=== PATIENT | male | born 1945 | race Caucasian/White ===

== ENCOUNTER 2017-05-17 13:58 | Outpatient (CLI) | payer MEDICARE ==
[2017-05-17 16:18] LABS: Bilirubin Negative (Negative); Blood, Urine Negative (Negative); Clarity CLEAR (Clear); Glucose, Urine (Dipstick) Negative (Negative); Leukocyte Negative (Negative); Nitrite Negative (Negative); Protein, Urine (Dipstick) Negative (Neg-Trace); Specific Gravity, Urine 1.017 (1.002-1.036); Urobilinogen 0.2 mg/dL (0.2-1.0)
[2017-05-17 16:20] LABS: Bacteria/HPF None Seen HPF (None Seen); Hyaline Casts/LPF 0-3 HYALINE CAST LPF (0-3 Hyaline); Pathc Cast-AUWi Flag 0.27 (0-2.49); RBC/HPF 0-3 HPF (0-3); Squamous Epithelial None Seen HPF (0-3); WBC/HPF None Seen HPF (0-3)
[2017-05-17 16:22] LABS: Prothrombin Time 13.2 SEC (12.0-14.7)
[2017-05-17 16:23] LABS: #Basophils 0.1 thou/uL (0.0-0.2); #Eosinphils 0.1 thou/uL (0.0-0.7); #Monocytes 0.5 thou/uL (0.11-0.59); #Neutrophils 5.3 thou/uL (1.40-6.50); %Basophils 0.9 % (0.0-1.0); %Lymphocytes 25.4 % (21.0-51.0); %Monocytes 6.6 % (0.0-10.0); %Neutrophils 66.1 % (42.0-75.0); Hemoglobin 15.9 g/dL (14.0-18.0); Mean Corpuscular HGB CONC 33.3 g/dL (32.0-36.0); Mean Corpuscular Hemoglobin 31.3 pg (27.0-31.0); Mean Platelet Volume 8.6 fL (7.4-10.4); Platelet Count 289 thou/uL (130-400); RBC Distribution Width 11.9 % (11.5-14.5); Red Blood Cell (RBC) Count 5.07 mill/uL (4.70-6.10)
--- NOTE | 2017-05-17 16:30 | RAD ---
CHEST TWO VIEW 05/17/17 HISTORY: Operating room. COMPARISON: None. FINDINGS: Lungs are slightly hyperinflated. Mild blunting left costophrenic sulci, likely sequela of lung hyper inflation. Anterior filling osteophytes thoracic spine. No focal air space consolidation or pneumotho rax. IMPRESSION: No acute intrathoracic abnormality. POS: [facility]
[2017-05-17 16:36] LABS: Anion Gap 15 mmol/L (10-20); BUN (Urea Nitrogen) 11 mg/dL (8.4-25.7); Calc. Creatinine Clearance 0 mL/min (70-130); Calcium 9.9 mg/dL (7.8-10.44); Carbon Dioxide 28 mmol/L (23-31); Chloride 103 mmol/L (98-107); Estimated GFR-MDRD Greater than 90; Glucose 81 mg/dL (80-115); Potassium 4.5 mmol/L (3.5-5.1); Sodium 141 mmol/L (136-145)
--- NOTE | 2017-05-17 19:59 | EKG ---
Test Reason : Blood Pressure : / mmHG Vent. Rate : 078 BPM Atrial Rate : 078 BPM P-R Int : 154 ms QRS Dur : 094 ms QT Int : 370 ms P-R-T Axes : 069 072 053 degrees QTc Int : 421 ms Normal sinus rhythm Normal ECG No previous ECGs available Confirmed by SANDRO CATALAN, DR. Castrejon ([id number]) on 05/17/2017 7:59:08 PM Referred By: FLORINA Confirmed By:DR. Lucía JO MD
== END 2017-05-17 13:59 | disposition home or self-care (01) ==
LOC: LABBT 13:58
PROVIDERS: ATTEND Orthopaedic Surgery
DX: Z01.818 Encounter for other preprocedural examination (principal); M17.11 Unilateral primary osteoarthritis, right knee
CPT/HCPCS: 71046; 80048; 81001; 85025; 85610; 85730; 86850; 86900; 86901; 93005; 93010

== ENCOUNTER 2017-05-22 08:16 | Day surgery (SDC) | payer MEDICARE ==
[2017-05-17 14:40] VITALS: BMI 25.7
[2017-05-22] MEDS ORDERED: Midazolam HCl 2 mg/2 ml Vial ONE (08:41)
[2017-05-22] MEDS ORDERED: Ropivacaine 0.2% HCl/PF 20 ML ONE (08:41)
[2017-05-22] MEDS ORDERED: Fentanyl 100 MCG/2 ML VIAL ONE (08:41)
[2017-05-22] MEDS ORDERED: Fentanyl 100 MCG/2 ML VIAL SLOW IVP PRN ×2 (08:42)
[2017-05-22] MEDS ORDERED: Promethazine HCl 25 MG/ML VIAL IM PRN ×3 (08:42→11:23)
[2017-05-22] MEDS ORDERED: Ondansetron HCl/PF 4 MG/2 ML Vial IVP PRN ×3 (08:42→11:23)
[2017-05-22] MEDS ORDERED: diphenhydrAMINE 25 MG CAP PO PRN (08:42)
[2017-05-22] MEDS ORDERED: HYDROcodone/Acetaminophen 10/325 mg Tablet PO PRN ×3 (08:42→09:24)
[2017-05-22] MEDS ORDERED: traMADol HCl 50 MG TAB PO PRN ×3 (08:42→09:24)
[2017-05-22] MEDS ORDERED: Zolpidem Tartrate 5 MG TAB PO PRN ×2 (08:42→09:24)
[2017-05-22] MEDS ORDERED: Acetaminophen 325 MG TAB PO PRN (08:42)
[2017-05-22] MEDS ORDERED: Tranexamic Acid 1,000 MG in Sodium Chloride 0.9% 100 ML IVPB SCH (08:45)
[2017-05-22] MEDS ORDERED: Tranexamic Acid 1,000 MG/100 ML BAG ONE ×2 (09:07→11:31)
[2017-05-22] MEDS ORDERED: Ropivacaine 0.2% 550 ML 550 ML NERVE BLCK SCH (09:24)
[2017-05-22] MEDS ORDERED: Fentanyl 100 MCG/2 ML VIAL IV PRN (09:24)
[2017-05-22] MEDS ORDERED: Vancomycin HCl 1.5 GM in Sodium Chloride 0.9% 250 ML 300 ML IVPB SCH (09:30)
[2017-05-22] MEDS ORDERED: Promethazine HCl 25 MG/ML VIAL SLOW IVP PRN (11:23)
[2017-05-22] MEDS ORDERED: HYDROmorphone 2 MG/ML VIAL SLOW IVP PRN (11:23)
--- NOTE | 2017-05-22 12:19 | OP ---
DATE OF PROCEDURE: 05/22/2017 PREOPERATIVE DIAGNOSIS: End-stage tricompartmental osteoarthritis, right knee. POSTOPERATIVE DIAGNOSIS: End-stage tricompartmental osteoarthritis, right knee. OPERATIVE PROCEDURE: Cemented cruciate-sparing computer-assisted navigated right total knee arthropl vel. SURGEON: Cory Rogers M.D. LEAD SUPPLY WORKER: Michael Smith PA-C. ANESTHESIA: General via laryngeal mask airway augmented with indwelling femoral adductor canal block with a single shot sciatic block. COMPONENTS USED: [employer] Triathlon size 4 cruciate-sparing cemented femoral component wi th a size 4 cemented primary tibial baseplate, 11 mm polyethylene fixed bearing insert, and A32 douglas lar button. TOURNIQUET TIME: 57 minutes at 300 mmHg. ESTIMATED BLOOD LOSS: Less than 100. DRAINS: None. SPECIMENS: None. COMPLICATIONS: None. COUNTS: Correct. 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 INDICATIONS FOR SURGERY: Kayden is a 71-year-old white male, who has had progressive right knee with standing and walking for the last 5-7 years. He has failed conservative management and elected to pr oceed with total knee arthroplasties in treatment of his pain. PROCEDURE IN DETAIL: After informed consent was obtained in the preoperative holding area. The rama ent was taken to the operative suite where general anesthesia was induced. Once adequate level of ge neral anesthesia was obtained, the patient was positioned and a well-padded tourniquet was placed ese und the right proximal thigh. The right lower extremity was then prepped and draped in the usual latrice rile fashion. Prior to exsanguination, a time out was called and all members of the surgical team ag chevy upon site, surgeon, and patient. The extremity was then exsanguinated and the tourniquet was ra ised. A midline longitudinal incision was then made directly over the patella extending two fingerbr eadths above the superior pole of the patella and two fingerbreadths inferior to the inferior patella r pole of the patella. Deeper subcutaneous layers were dissected sharply and local bleeding was cont rolled with Bovie electrocautery. A quad tendon longitudinal split was then made sharply and a media n parapatellar arthrotomy was carried out both sharp and with Bovie electrocautery, carried down to o ne fingerbreadth medial to the tibial tubercle. The knee was then placed into flexion and the patell a was everted nicely, and a copious fat pad ectomy was performed allowing for greater exposure of the tibia. The computer-assisted distal femoral fiducial was then placed and pinned firmly, and the dis bev femoral cutting guide was pinned firmly into place. The oscillating saw was then used to remove the appropriate amount of bone. The 4-in-1 cutting block was then placed on the distal femur and the oscillating saw was used to remove the appropriate amount of bone off of the anterior, posterior, an d chamfer cuts. After completion of bone cuts, the anterior cruciate ligament was resected sharply a nd the posterior cruciate ligament retractor was placed and the tibia was subluxed for better exposur e. Partial meniscectomies were carried out, and the tibial computer-assisted fiducial was pinned, an d the cutting guide was placed. Oscillating saw was then used to remove the bone with Hohmann retrac tors used to take care and protect the collateral ligaments. After the tibial resection was performe d, a laminar industrial garage servicer was placed in between the freshened bone cuts. The knee placed at 90 degrees a nd further bilateral meniscectomies were carried out, and the curved osteotome and curettage was used to remove any excess bone spurs in the posterior compartment. The trial femoral component, tibial b aseplate were placed with the appropriate polyethylene trial insert with an appropriate polyethylene spacer and patellar button. The knee was taken through full range of motion with flexion and extensi on from 0-90 degrees and patellar broach squarely in the trochlea without any squinting or subluxati on noted. The knee was also stable to varus and valgus stressing at 0, 15, 45, and 90 degrees of fle xion. The drawer was negative. All trial components were then removed and the keel punch was used t o provide the appropriate defect in the tibia with a mallet. The freshened bone cuts were copiously irrigated with pulsatile lavage of about 1-1/2 liters to remove all excess debris. The freshened bon e cuts were then dried and with suction and lap sponge. The knee was placed in flexion and retractor s were placed to provide access to all bone cuts. Tobramycin impregnated methyl methacrylate cement was then placed on the freshened bone cuts and implants which were malleted firmly into place. Curet tage and [place] elevators were used to remove any excess bone cement. The knee was placed into full e xtension and the patellar button was placed under compression, and the cement was allowed to cure. O nce completed, the components were again taken through full range of motion and copious irrigation of the knee was carried out with another liter of normal saline. All components were inspected fully w ith full range of motion and varus and valgus stressing. There was no laxity noted and full extension was observed clinically. Primary closure was accomplished with #2 interrupted Vicryl stitch of the arthrotomy defect. This was oversewn with a #2 running Quill barbed stitch. The subcutaneous layer was then closed with a running 0 barbed Monocryl stitch and skin closure accomplished with a running subcuticular 3-0 Monocryl barbed Quill stitch and augmented with cement on the skin. Tourniquet was lowered. Good spontaneous return of distal pulses was noted clinically and a sterile dressing was ap plied to the incision. The procedure was terminated without any complications. The patient was awak ened in the operative suite and taken to the recovery room in stable condition.
[2017-05-22] MEDS ORDERED: Ropivacaine 0.5% HCl/PF (150 MG/30 ML VIAL) ONE (12:28)
[2017-05-22] MEDS ORDERED: Promethazine HCl 25 MG/ML VIAL ONE (12:46)
[2017-05-22] MEDS ORDERED: Propofol 200 MG/20 ML VIAL ONE (12:53)
[2017-05-22] MEDS ORDERED: ePHEDrine/0.9% NaCl/PF SYRINGE 50 mg/10 ml ONE (12:53)
[2017-05-22] MEDS ORDERED: Ondansetron HCl/PF 4 MG/2 ML Vial ONE (12:53)
[2017-05-22] MEDS ORDERED: Dexamethasone 20 MG/5 ML VIAL ONE (12:53)
--- NOTE | 2017-05-22 13:34 | RAD ---
TWO VIEWS RIGHT KNEE: HISTORY: Right knee arthroplasty. COMPARISON: None. FINDINGS: Postoperative changes compatible with a right knee arthroplasty. Alignment is near anatomic. IMPRESSION: Postoperative changes. POS: [facility]
[2017-05-22] MEDS ORDERED: Ketorolac Tromethamine 30 MG/ML VIAL IM SCH (14:00)
[2017-05-22] MEDS: Ferrous Gluconate 324 MG TAB PO SCH ×2 (14:31→20:31)
[2017-05-22] MEDS: Multivitamin W/ Minerals 1 TAB PO SCH (14:31)
[2017-05-22] MEDS: Ascorbic Acid 500 mg Chewable Tablet PO SCH (14:31)
[2017-05-22] MEDS: Dextrose 5 %-0.45 % NaCl 1,000 ML IV SCH ×2 (14:31→23:59)
[2017-05-22] MEDS: Ketorolac Tromethamine 30 MG/ML VIAL IVP SCH ×3 (14:32→23:56)
[2017-05-22] MEDS: Senokot S 8.6-50 MG TAB PO SCH ×2 (14:32→20:31)
[2017-05-22] MEDS: CEFAZOLIN/Water 2 GM/20 ML SYRINGE SLOW IVP SCH (18:15)
[2017-05-22] MEDS: Aspirin 81 mg Enteric Coated Tablet PO SCH (20:31)
--- NOTE | 2017-05-22 20:41 | PDOC.EVN ---
Event Note - Event Note Event Note: Patient seen and examined. No new complaints. Has h/o HLD - diet controlled. Will monitor. Thank you for this consultation.
[2017-05-23] MEDS: CEFAZOLIN/Water 2 GM/20 ML SYRINGE SLOW IVP SCH (02:35)
[2017-05-23] MEDS: Dextrose 5 %-0.45 % NaCl 1,000 ML IV SCH ×2 (04:36→14:34)
[2017-05-23] MEDS: HYDROcodone/Acetaminophen 10/325 mg Tablet PO PRN ×3 (04:47→15:20)
[2017-05-23 05:51] LABS: Hemoglobin 13.6 g/dL (14.0-18.0); Mean Corpuscular HGB CONC 32.6 g/dL (32.0-36.0); Mean Corpuscular Hemoglobin 30.5 pg (27.0-31.0); Mean Corpuscular Volume 93.7 fl (80.0-94.0); Mean Platelet Volume 8.4 fL (7.4-10.4); Platelet Count 261 thou/uL (130-400); RBC Distribution Width 11.6 % (11.5-14.5); Red Blood Cell (RBC) Count 4.45 mill/uL (4.70-6.10)
[2017-05-23] MEDS: Ketorolac Tromethamine 30 MG/ML VIAL IVP SCH ×2 (06:19→12:52)
[2017-05-23] MEDS: Aspirin 81 mg Enteric Coated Tablet PO SCH (08:31)
[2017-05-23] MEDS: Ascorbic Acid 500 mg Chewable Tablet PO SCH (08:31)
[2017-05-23] MEDS: Senokot S 8.6-50 MG TAB PO SCH (08:31)
[2017-05-23] MEDS: Multivitamin W/ Minerals 1 TAB PO SCH (08:31)
[2017-05-23] MEDS: Ferrous Gluconate 324 MG TAB PO SCH (08:31)
[2017-05-23 15:51] VITALS: BP 149/91; TEMP 97.2
== END 2017-05-23 15:49 | disposition home or self-care (01) ==
LOC: SDC 08:16 → SURG A 08:42 → SDC 05-23 15:49
PROVIDERS: ATTEND Orthopaedic Surgery
PROC: 0SRC0J9 Replacement of Right Knee Joint with Synthetic Substitute, Cemented, Open Approach (ICD-10-PCS; principal; 2017-05-22)
PROC: 8E0YXBZ Computer Assisted Procedure of Lower Extremity (ICD-10-PCS; 2017-05-22)
DX: M17.0 Bilateral primary osteoarthritis of knee (principal); E78.5 Hyperlipidemia, unspecified; E78.00 Pure hypercholesterolemia, unspecified; Z98.41 Cataract extraction status, right eye; Z98.42 Cataract extraction status, left eye; Z98.890 Other specified postprocedural states; Z79.899 Other long term (current) drug therapy
CPT/HCPCS: 20985; 27447; 73560; 85027; 97116 ×2; 97139; 97150; 97530 ×2; A4306; C1713; C1776; G8978; G8979; 36415; J1100; J1885; J2250; J2405; J2550; J2704; J2795; J3010; J3370; J7050

== ENCOUNTER 2018-04-09 10:36 | Outpatient (CLI) | payer MEDICARE ==
[2018-04-09 12:17] LABS: #Basophils 0.1 thou/uL (0.0-0.2); #Eosinphils 0.1 thou/uL (0.0-0.7); #Lymphocytes 2.1 thou/uL (1.20-3.40); #Monocytes 0.4 thou/uL (0.11-0.59); #Neutrophils 3.4 thou/uL (1.40-6.50); %Basophils 1.3 % (0.0-1.0); %Eosinophils 1.3 % (0.0-10.0); %Lymphocytes 34.3 % (21.0-51.0); %Neutrophils 56.1 % (42.0-75.0); Hemoglobin 15.4 g/dL (14.0-18.0); Mean Corpuscular HGB CONC 32.3 g/dL (32.0-36.0); Mean Corpuscular Hemoglobin 29.3 pg (27.0-31.0); Mean Corpuscular Volume 90.7 fL (78.0-98.0); Mean Platelet Volume 8.7 fL (7.4-10.4); Platelet Count 266 thou/uL (130-400); RBC Distribution Width 12.1 % (11.5-14.5); Red Blood Cell (RBC) Count 5.25 mill/uL (4.70-6.10)
[2018-04-09 12:25] LABS: Prothrombin Time 13.4 SEC (12.0-14.7)
[2018-04-09 12:26] LABS: Bilirubin Negative (Negative); Blood, Urine Negative (Negative); Clarity CLEAR (Clear); Glucose, Urine (Dipstick) Negative (Negative); Leukocyte Negative (Negative); Nitrite Negative (Negative); Protein, Urine (Dipstick) Negative (Neg-Trace); Specific Gravity, Urine 1.008 (1.002-1.036); Urobilinogen 0.2 mg/dL (0.2-1.0)
[2018-04-09 12:32] LABS: Bacteria/HPF None Seen HPF (None Seen); Hyaline Casts/LPF 0-3 HYALINE CAST LPF (0-3 Hyaline); RBC/HPF None Seen HPF (0-3); Squamous Epithelial None Seen HPF (0-3); WBC/HPF None Seen HPF (0-3)
[2018-04-09 12:45] LABS: Anion Gap 13 mmol/L (10-20); BUN (Urea Nitrogen) 12 mg/dL (8.4-25.7); Calc. Creatinine Clearance 0 mL/min (70-130); Calcium 9.6 mg/dL (7.8-10.44); Carbon Dioxide 25 mmol/L (23-31); Chloride 106 mmol/L (98-107); Estimated GFR-MDRD Greater than 90; Glucose 87 mg/dL (80-115); Potassium 4.2 mmol/L (3.5-5.1); Sodium 140 mmol/L (136-145)
== END 2018-04-09 10:37 | disposition home or self-care (01) ==
LOC: LABBT 10:36
PROVIDERS: ATTEND Orthopaedic Surgery
DX: Z01.818 Encounter for other preprocedural examination (principal); M17.12 Unilateral primary osteoarthritis, left knee
CPT/HCPCS: 80048; 81001; 85025; 85610; 87081; 93005; 93010

== ENCOUNTER 2018-04-16 10:23 | Day surgery (SDC) | payer MEDICARE ==
[~2018-04-16 10:23] MED LIST: Bupivacaine 0.25% HCL 30 ML VIAL ONE; Ropivacaine 0.5% HCl/PF (150 MG/30 ML VIAL) ONE
[2018-04-16] MEDS ORDERED: Tranexamic Acid 1,000 MG/10 ML VIAL ONE (12:20)
[2018-04-16] MEDS ORDERED: Sodium Chloride 0.9% 100 ML ONE (12:20)
[2018-04-16] MEDS ORDERED: CEFAZOLIN 2 GM/50 ML BAG ONE (12:20)
[2018-04-16] MEDS ORDERED: Fentanyl 100 MCG/2 ML VIAL ONE ×5 (12:33→17:45)
[2018-04-16] MEDS ORDERED: Midazolam HCl 2 mg/2 ml Vial ONE (12:33)
[2018-04-16] MEDS ORDERED: Vancomycin HCl 1.5 GM in Sodium Chloride 0.9% 250 ML 300 ML IVPB SCH (12:45)
[2018-04-16] MEDS ORDERED: Lidocaine 1% (PF) 30 ML VIAL ONE (13:02)
[2018-04-16] MEDS ORDERED: traMADol HCl 50 MG TAB PO PRN ×2 (13:58)
[2018-04-16] MEDS ORDERED: Ondansetron PF 4 MG/2 ML Vial IVP PRN ×2 (13:58→14:14)
[2018-04-16] MEDS ORDERED: Ropivacaine HCl/PF 250 ML in Premix Bag 1 BAG NERVE BLCK SCH (13:58)
[2018-04-16] MEDS ORDERED: Zolpidem Tartrate 5 MG TAB PO PRN ×2 (13:58→14:14)
[2018-04-16] MEDS ORDERED: HYDROcodone/Acetaminophen 10/325 mg Tablet PO PRN ×2 (13:58)
[2018-04-16] MEDS ORDERED: Promethazine HCl 25 MG/ML VIAL IM PRN ×3 (13:58→15:29)
[2018-04-16] MEDS ORDERED: Fentanyl 100 MCG/2 ML VIAL IV PRN (13:59)
[2018-04-16] MEDS ORDERED: Acetaminophen 325 MG TAB PO PRN (14:14)
[2018-04-16] MEDS ORDERED: diphenhydrAMINE 25 MG CAP PO PRN (14:14)
[2018-04-16] MEDS ORDERED: Promethazine HCl 25 MG/ML VIAL SLOW IVP PRN (15:29)
[2018-04-16] MEDS ORDERED: HYDROmorphone 2 MG/ML VIAL SLOW IVP PRN (15:29)
[2018-04-16] MEDS ORDERED: PACU-Morphine 4MG/ML VIAL SLOW IVP PRN (15:29)
[2018-04-16] MEDS ORDERED: Ondansetron HCl/PF 4 MG/2 ML Vial IVP PRN (15:29)
[2018-04-16] MEDS ORDERED: Promethazine HCl 25 MG/ML VIAL ONE (17:06)
--- NOTE | 2018-04-16 17:37 | RAD ---
LEFT KNEE TWO VIEWS: HISTORY: Postop total knee. COMPARISON: None. FINDINGS: Satisfactory postoperative appearance of left total knee arthroplasty and patella resurfacing. Expec sita postoperative gas and edema. IMPRESSION: Satisfactory postoperative appearance. POS: [facility]
[2018-04-16] MEDS ORDERED: Ropivacaine 0.5% HCl/PF (150 MG/30 ML VIAL) ONE (17:44)
[2018-04-16] MEDS ORDERED: Ketorolac Tromethamine 30 MG/ML VIAL IVP SCH (18:00)
--- NOTE | 2018-04-16 18:37 | OP ---
DATE OF PROCEDURE: 04/16/2018 PREOPERATIVE DIAGNOSIS: End-stage tricompartmental osteoarthritis, left knee. POSTOPERATIVE DIAGNOSIS: End-stage tricompartmental osteoarthritis, left knee. PROCEDURE PERFORMED: Cemented cruciate sparing computer-assisted navigated left total knee arthroplasty. DOORKEEPER: Michael Smith PA-C ANESTHESIA: General via LMA augmented with indwelling femoral block and a single shot sciatic block. COMPONENTS USED: [facility] Triathlon size 4 cruciate-sparing cemented primary femoral component with a Triathlon primary size 4 cemented tibial baseplate, size 4 11-mm polyethylene fixed bearing insert, a 32 patella button. TOURNIQUET TIME: 58 minutes at 300 mmHg. ESTIMATED BLOOD LOSS: Less than 100. FINDINGS: End-stage severe degenerative tricompartmental disease, [id number] arthrosis, periarticular osteophyte formation, large serous effusion, hypertrophic synovium, and changes consistent with degenerative genu varum. DRAINS: None. SPECIMENS: None. COMPLICATIONS: None. COUNTS: Correct. INDICATIONS FOR SURGERY: Kayden is a 72-year-old white male, who has had progressive left knee pain and problem with standing and walking for the last 5 to 7 years. He has failed conservative management and elected to proceed with total knee arthroplasty as definitive treatment of his pain. PROCEDURE IN DETAIL: After informed consent was obtained in the preoperative holding area, the patient was taken to the operative suite where general anesthesia was induced. Once adequate level of general anesthesia was obtained, the patient was positioned and a well-padded tourniquet was placed around the left proximal thigh. The left lower extremity was then prepped and draped in the usual sterile fashion. Prior to exsanguination, a time-out was called and all members of the surgical team agreed upon site, surgeon, and patient. The extremity was then exsanguinated and the tourniquet was raised. A midline longitudinal incision was then made directly over the patella extending 2 fingerbreadths above the superior pole of the patella and 2 fingerbreadths inferior to the inferior patellar pole of the patella. Deeper subcutaneous layers were dissected sharply and local bleeding was controlled with Bovie electrocautery. A quad tendon longitudinal split was then made sharply and a median parapatellar arthrotomy was carried out both sharp and with Bovie electrocautery, carried down to 1 fingerbreadth medial to the tibial tubercle. The knee was then placed into flexion and the patella was everted nicely, and a copious fat pad ectomy was performed allowing for greater exposure of the tibia. The computer-assisted distal femoral fiducial was then placed and pinned firmly, and the distal femoral cutting guide was pinned firmly into place. The oscillating saw was then used to remove the appropriate amount of bone. The 4-in-1 cutting block was then placed on the distal femur and the oscillating saw was used to remove the appropriate amount of bone off the anterior, posterior, and chamfer cuts. After completion of bone cuts, the anterior cruciate ligament was resected sharply and the posterior cruciate ligament retractor was placed and the tibia was subluxed for better exposure. Partial meniscectomies were carried out, and the tibial computer-assisted fiducial was pinned, and the cutting guide was placed. Oscillating saw was then used to remove the bone, with Hohmann retractors used to take care and protect the collateral ligaments. After the tibial resection was performed, a laminar water purifier was placed in between the freshened bone cuts. The knee placed at 90 degrees and further bilateral meniscectomies were carried out, and the curved osteotome and curettage were used to remove any excess bone spurs in the posterior compartment. The trial femoral component, tibial baseplate was placed with the appropriate polyethylene trial insert with an appropriate polyethylene spacer and patellar button. The knee was taken through full range of motion with flexion and extension from 0 to 90 degrees and patellar broach squarely in the trochlea without any squinting or subluxation noted. The knee was also stable to varus and valgus stressing at 0, 15, 45, and 90 degrees of flexion. The drawer was negative. All trial components were then removed and the keel punch was used to provide the appropriate defect in the tibia with a mallet. The freshened bone cuts were copiously irrigated with pulsatile lavage of about 1.5 L to remove all excess debris. The freshened bone cuts were then dried with suction and lap sponge. The knee was placed in flexion and retractors were placed to provide access to all bone cuts. Tobramycin-impregnated methyl methacrylate cement was then placed on the freshened bone cuts and implants which were malleted firmly into place. Curettage and [place] elevators were used to remove any excess bone cement. The knee was placed into full extension and the patellar button was placed under compression, and the cement was allowed to cure. Once completed, the components were again taken through full range of motion and copious irrigation of the knee was carried out with another liter of normal saline. All components were inspected fully with full range of motion and varus and valgus stressing. There was no laxity noted and full extension was observed clinically. Primary closure was accomplished with #2 interrupted Vicryl stitch of the arthrotomy defect. This was oversewn with a #2 running Quill barbed stitch. The gravitational platelet system was then injected into the arthrotomy prior to closure. The subcutaneous layer was then closed with a running 0 barbed Monocryl stitch and skin closure accomplished with a running subcuticular 3-0 Monocryl barbed Quill stitch and augmented with cement on the skin. Tourniquet was lowered. Good spontaneous return of distal pulses was noted clinically and a sterile dressing was applied to the incision. The procedure was terminated without any complications. The patient was awakened in the operative suite and the left knee was removed, and the patient was taken to the recovery room in stable condition. Job ID: [id number]
[2018-04-16] MEDS: Aspirin 81 mg Enteric Coated Tablet PO SCH (21:42)
[2018-04-16] MEDS: Ferrous Gluconate 324 MG TAB PO SCH (21:43)
[2018-04-16] MEDS: Senokot S 8.6-50 MG TAB PO SCH (21:43)
[2018-04-16] MEDS: CEFAZOLIN 2 GM/50 ML BAG IVPB SCH (21:44)
[2018-04-16] MEDS: Sodium Chloride 0.9% 1,000 ML IV SCH (21:44)
[2018-04-16] MEDS: Ketorolac Tromethamine 30 MG/ML VIAL IVP SCH (21:44)
[2018-04-16 23:40] VITALS: BMI 25.5
[2018-04-17] MEDS: Sodium Chloride 0.9% 1,000 ML IV SCH ×2 (01:16→11:28)
[2018-04-17] MEDS: Ketorolac Tromethamine 30 MG/ML VIAL IVP SCH ×3 (05:11→15:24)
[2018-04-17] MEDS: CEFAZOLIN 2 GM/50 ML BAG IVPB SCH (05:11)
[2018-04-17 05:49] LABS: Hemoglobin 12.4 g/dL (14.0-18.0); Mean Corpuscular HGB CONC 33.9 g/dL (32.0-36.0); Mean Corpuscular Hemoglobin 30.5 pg (27.0-31.0); Mean Platelet Volume 8.5 fL (7.4-10.4); Platelet Count 225 thou/uL (130-400); RBC Distribution Width 11.9 % (11.5-14.5); Red Blood Cell (RBC) Count 4.06 mill/uL (4.70-6.10); White Blood Cell (WBC) Count 14.1 thou/uL (4.8-10.8)
[2018-04-17] MEDS: Aspirin 81 mg Enteric Coated Tablet PO SCH (08:39)
[2018-04-17] MEDS: Ferrous Gluconate 324 MG TAB PO SCH (08:40)
[2018-04-17] MEDS: Senokot S 8.6-50 MG TAB PO SCH (08:41)
[2018-04-17] MEDS ORDERED: Multivitamin W/ Minerals 1 TAB PO SCH (09:00)
--- NOTE | 2018-04-17 09:43 | PDOC.PN ---
- Subjective Encounter Start Date: 04/17/18 Encounter Start Time: 08:10 -: old records requested/rev Patient seen and examined. No new complaints. No overnight events consulted for medical management pain is controlled - Objective Resuscitation Status - Order Detail: 04/17/18 07:37 Resuscitation Status Routine Resuscitation Status: FULL: Full Resuscitation MAR Reviewed: Yes Vital Signs & Weight: Vital Signs (12 hours) Temp Pulse Resp BP Pulse Ox 04/17/18 08:31 98.1 F 87 16 116/71 94 L 04/17/18 03:57 98.4 F 79 19 99/63 94 L 04/17/18 00:27 97.5 F L 67 22 H 133/84 96 Weight Weight 183 lb I&O: 04/16/18 04/17/18 04/18/18 06:59 06:59 06:59 Intake Total 920 Output Total 875 Balance 45 Result Diagrams: 04/17/18 05:19 Additional Labs: old record reviewed Radiology Reviewed by me: Yes (knee xray reviewed) Phys Exam - Physical Examination Constitutional: NAD HEENT: PERRLA, moist MMs, sclera anicteric Neck: no JVD, supple Respiratory: no wheezing, no rales, no rhonchi Cardiovascular: RRR, no significant murmur, no rub Gastrointestinal: soft, non-tender, no distention, positive bowel sounds Musculoskeletal: no edema, pulses present left knee with dressing, nerve block in place Neurological: non-focal, normal sensation, moves all 4 limbs Psychiatric: normal affect, A&O x 3 Skin: no rash, normal turgor Dx/Plan (1) Status post left knee replacement Code(s): Z96.652 - PRESENCE OF LEFT ARTIFICIAL KNEE JOINT Status: Acute (2) BPH (benign prostatic hyperplasia) Code(s): N40.0 - BENIGN PROSTATIC HYPERPLASIA WITHOUT LOWER URINRY TRACT SYMP Status: Chronic Comment: on herbal meds (3) Osteoarthritis Code(s): M19.90 - UNSPECIFIED OSTEOARTHRITIS, UNSPECIFIED SITE Status: Chronic - Plan cont current plan of care, PT/OT * continue aspirin for DVT prophylaxis * continue PT as per [facility] [place] protocol treatment * nerve block as per anesthesia * discharge per primary team * medically stable * medication reviewed as below * symptomatic treatment * pain controlled * code status addressed and he is full code. Review of Systems - Review of Systems ENT: negative: Ear Pain, Ear Discharge, Nose Pain, Nose Discharge, Nose Congestion, Mouth Pain, Mouth Swelling, Throat Pain, Throat Swelling, Other Respiratory: negative: Cough, Dry, Shortness of Breath, Hemoptysis, SOB with Excertion, Pleuritic Pain, Sputum, Wheezing Cardiovascular: negative: chest pain, palpitations, orthopnea, paroxysmal nocturnal dyspnea, edema, light headedness, other Gastrointestinal: negative: Nausea, Vomiting, Abdominal Pain, Diarrhea, Constipation, Melena, Hematochezia, Other Genitourinary: negative: Dysuria, Frequency, Incontinence, Hematuria, Retention , Other Musculoskeletal: negative: Neck Pain, Shoulder Pain, Arm Pain, Back Pain, Hand Pain, Leg Pain, Foot Pain, Other Skin: negative: Rash, Lesions, Brian, Bruising, Other - Medications/Allergies Allergies/Adverse Reactions: Allergies Allergy/AdvReac Type Severity Reaction Status Date / Time No Known Allergies Allergy Verified 04/16/18 23:03 Medications: Current Medications Acetaminophen (Tylenol) 650 mg PO Q4H PRN PRN Reason: Headache/Fever or Pain Hydrocodone Bitart/Acetaminophen (Counce 10/325) 1 tab PO Q4H PRN PRN Reason: Pain (1-3) Hydrocodone Bitart/Acetaminophen (Counce 10/325) 2 tab PO Q4H PRN PRN Reason: PAIN (4-6) Aspirin (Ecotrin) 81 mg PO BID [facility] Last Admin: 04/17/18 08:39 Dose: 81 mg Diphenhydramine HCl (Benadryl) 25 mg PO Q6H PRN PRN Reason: Itching Fentanyl (Sublimaze) 50 mcg IV Q1H PRN PRN Reason: .BREAKTHROUGH PAIN Ferrous Gluconate (Fergon) 324 mg PO BID [facility] Last Admin: 04/17/18 08:40 Dose: 324 mg Ropivacaine 250 ml/ Device 250 mls @ 10 mls/hr NERVE BLCK INF [facility] Sodium Chloride (Normal Saline 0.9%) 1,000 mls @ 100 mls/hr IV .Q10H [facility] Last Admin: 04/17/18 01:16 Dose: Not Given Iron/Minerals/Multivitamins (Theragran M) 1 tab PO DAILY [facility] Last Admin: 04/17/18 08:40 Dose: 1 tab Ketorolac Tromethamine (Toradol) 15 mg IVP 0400,1000,1600,2200 [facility] Stop: 04/18/18 16:01 Last Admin: 04/17/18 05:11 Dose: 15 mg Ondansetron HCl (Zofran) 4 mg IVP Q6H PRN PRN Reason: Nausea/Vomiting Promethazine HCl (Phenergan) 12.5 mg IM Q4H PRN PRN Reason: Nausea/Vomiting Senna/Docusate Sodium (Senokot S) 2 tab PO BID [facility] Last Admin: 04/17/18 08:41 Dose: 2 tab Sodium Chloride (Flush - Normal Saline) 10 ml IVF PRN PRN PRN Reason: Saline Flush Tramadol HCl (Ultram) 50 mg PO Q6H PRN PRN Reason: Mild Pain (1-3) Tramadol HCl (Ultram) 100 mg PO Q6H PRN PRN Reason: Moderate Pain 4-6 Zolpidem Tartrate (Ambien) 5 mg PO HSPRN PRN PRN Reason: Insomnia
--- NOTE | 2018-04-17 10:51 | DIS ---
DATE OF ADMISSION: 04/16/2018 DATE OF DISCHARGE: 04/17/2018 DISCHARGE DISPOSITION: Home. PRIMARY DISCHARGE DIAGNOSIS: Status post left total knee replacement. SECONDARY DISCHARGE DIAGNOSES: Osteoarthritis, benign enlargement of prostate. PRIMARY PROCEDURE/OPERATION: Left total knee replacement by Dr. Rogers. RADIOLOGICAL INVESTIGATION: Knee x-ray. SIGNIFICANT LABORATORY DATA: WBC 14.1, hemoglobin 12.4, platelets 225. DISCHARGE MEDICATION: Pain medication will be given by primary team and aspirin 81 mg p.o. b.i.d. for DVT prophylaxis. CONTRAINDICATION: None. CODE STATUS: Full code. INPATIENT CONSULT: Dr. Rogers was primary, Eugenie Team was consulted for medical comanagement. TEST RESULTS PENDING ON DISCHARGE: None. ALLERGIES: NO KNOWN DRUG ALLERGIES. DISCHARGE PLAN: Posthospital, the patient will follow up with Dr. Cory Rogers on 05/15/2018 at 10:45 am. HOSPITAL COURSE: A 72-year-old male with above-mentioned medical problem, who was electively admitted by Dr. Rogers for left total knee replacement which was done on 04/16/2018 without any complications. Postoperatively, the patient was doing very well. He had no block while in the hospital. He was given aspirin for DVT prophylaxis. He was not taking any medication at home. His pain was controlled with pain medication. He did very well with [facility] protocol treatment and the patient is planned for discharge later on today. Eugenie Team was consulted for medical comanagement. The patient remained medically stable and he is medically stable for discharge. Job ID: [id number]
[2018-04-17] MEDS ORDERED: Ropivacaine 0.2% 550 ML 550 ML NERVE BLCK SCH (15:44)
[2018-04-17 16:21] VITALS: BP 117/74; TEMP 98.4
== END 2018-04-17 18:06 | disposition home or self-care (01) ==
LOC: SDC 10:23 → SJJU 18:15 → SDC 04-17 18:06
PROVIDERS: ATTEND Orthopaedic Surgery
PROC: 0SRD069 Replacement of Left Knee Joint with Oxidized Zirconium on Polyethylene Synthetic Substitute, Cemented, Open Approach (ICD-10-PCS; principal; 2018-04-16)
DX: M17.12 Unilateral primary osteoarthritis, left knee (principal); N40.0 Benign prostatic hyperplasia without lower urinary tract symptoms
CPT/HCPCS: 36415; 85027; 96374; A4306; C1713; C1776; G8978-GP-CK; G8979-GP-CI; J1885; J2001; J2250; J2550; J2795; J3010; J3370; J7050; S0020

== ENCOUNTER 2021-06-23 07:58 | Outpatient (CLI) | payer MEDICARE ==
[2021-06-23 08:36] LABS: Estimated GFR-MDRD - POC Greater than 90
[2021-06-23] MEDS ORDERED: Magnevist 469MG/ML 20 ML VIAL ONE (11:13)
== END 2021-06-23 07:59 | disposition home or self-care (01) ==
LOC: TBSIIMAG 07:58
PROVIDERS: ATTEND Urology
DX: R97.20 Elevated prostate specific antigen [PSA] (principal); Z98.890 Other specified postprocedural states
CPT/HCPCS: 72197; 82565

== ENCOUNTER 2021-12-26 11:22 | Observation (INO) | payer MEDICARE ==
[2021-12-21 11:48] LABS: Bilirubin Neg (Negative); Blood, Urine 25 (Negative); Clarity Clear (Clear); Glucose, Urine (Dipstick) Normal (Negative); Ketone, Urine Negative (Negative); Leukocyte Negative (Negative); Nitrite Negative (Negative); Protein, Urine (Dipstick) Negative (Neg-Trace); Urobilinogen Normal mg/dL (Less than 2)
[2021-12-21 11:51] LABS: Hemoglobin 14.5 g/dL (13.5-17.5); Mean Corpuscular HGB CONC 34.5 g/dL (32.0-36.0); Mean Corpuscular Hemoglobin 30.2 pg (27.0-33.0); Mean Corpuscular Volume 87.5 fl (81.2-95.1); Platelet Count 274 10x3/uL (150-450); RBC Distribution Width 13.6 % (11.5-14.5); White Blood Cell (WBC) Count 6.1 10x3/uL (3.5-10.5)
[2021-12-21 12:04] LABS: Bacteria/HPF None Seen HPF (None Seen); RBC/HPF 0-3 HPF (0-3); Squamous Epithelial 0-3 HPF (0-3); WBC/HPF 0-3 HPF (0-3)
[2021-12-21 12:10] LABS: PTT 26.5 sec (22.0-33.0); Prothrombin Time 10.9 sec (9.5-12.1)
[2021-12-21 12:34] LABS: Anion Gap 12 mmol/L (10-20); BUN (Urea Nitrogen) 8 mg/dL (8.4-25.7); Calc. Creatinine Clearance 0 mL/min (70-130); Calcium 9.3 mg/dL (7.8-10.44); Carbon Dioxide 27 mmol/L (23-31); Chloride 106 mmol/L (98-107); Estimated GFR 92; Glucose 86 mg/dL (83-110); Potassium 4.6 mmol/L (3.5-5.1); Sodium 140 mmol/L (136-145)
[2021-12-26] MEDS ORDERED: fentaNYL Citrate/PF 100 MCG/2 ML SYRINGE ONE (14:37)
[2021-12-26] MEDS ORDERED: Levofloxacin 500 mg/D5W 100 ml Premix Bag ONE (14:40)
[2021-12-26] MEDS ORDERED: Ondansetron PF 4 MG/2 ML Vial ONE (14:51)
[2021-12-26] MEDS ORDERED: Phenylephrine 10 MG/ML VIAL ONE (14:51)
[2021-12-26] MEDS ORDERED: Lidocaine 1% MPF 2 ML VIAL ONE (14:51)
[2021-12-26] MEDS ORDERED: Glycopyrrolate 0.2 MG/ML 5 ML SYRINGE ONE (14:51)
[2021-12-26] MEDS ORDERED: Dexamethasone 20 MG/5 ML VIAL ONE (14:51)
[2021-12-26] MEDS ORDERED: Labetalol HCl 100 MG/20 ML VIAL ONE (14:51)
[2021-12-26] MEDS ORDERED: Neostigmine Methylsulfate 3 MG/3 ML SYRINGE ONE (14:51)
[2021-12-26] MEDS ORDERED: PROPOFOL 200 MG/20 ML VIAL ONE (14:51)
[2021-12-26] MEDS ORDERED: Rocuronium Bromide 10 MG/ML (10ML VIAL) ONE (14:51)
[2021-12-26] MEDS ORDERED: Oxybutynin 5 MG TAB PO PRN (17:13)
[2021-12-26] MEDS ORDERED: Morphine 2 MG/ML VIAL SLOW IVP PRN (17:13)
[2021-12-26] MEDS ORDERED: HYDROcodone/Acetaminophen 5/325 mg Tablet PO PRN ×2 (17:13)
[2021-12-26] MEDS ORDERED: hydrALAZINE 20 MG/ML VIAL SLOW IVP PRN (17:13)
[2021-12-26] MEDS ORDERED: Phenazopyridine HCl 95 MG TAB PO PRN (17:13)
[2021-12-26] MEDS ORDERED: Mag-Al 1200 mg/1200 mg/30 ML UDCUP PO PRN (17:13)
[2021-12-26] MEDS ORDERED: Morphine 4 MG/ML VIAL SLOW IVP PRN (17:13)
[2021-12-26] MEDS ORDERED: Acetaminophen 500 MG TAB PO PRN (17:13)
[2021-12-26] MEDS ORDERED: diphenhydrAMINE 25 MG CAP PO PRN (17:13)
[2021-12-26] MEDS ORDERED: Promethazine HCl 25 MG/ML VIAL IVPB PRN (17:19)
[2021-12-26] MEDS ORDERED: Ondansetron HCl/PF 4 MG/2 ML Vial IVP PRN (17:19)
[2021-12-26] MEDS ORDERED: Promethazine HCl 25 MG/ML VIAL IM PRN (17:19)
[2021-12-26] MEDS ORDERED: PACU-Morphine 4MG/ML VIAL SLOW IVP PRN (17:19)
[2021-12-26] MEDS ORDERED: Morphine Sulfate 2 MG/ML SYRINGE SLOW IVP PRN (17:19)
[2021-12-26] MEDS ORDERED: HYDROmorphone 2 MG/ML VIAL SLOW IVP PRN (17:19)
[2021-12-26 17:43] LABS: #Basophils 0.1 thou/uL (0.0-0.2); #Eosinphils 0.1 thou/uL (0.0-0.7); #Lymphocytes 1.8 thou/uL (1.20-3.40); #Monocytes 0.3 thou/uL (0.11-0.59); #Neutrophils 7.7 thou/uL (1.40-6.50); %Basophils 0.5 % (0.0-1.0); %Eosinophils 0.8 % (0.0-10.0); %Monocytes 2.7 % (0.0-10.0); Mean Corpuscular HGB CONC 33.2 g/dL (32.0-36.0); Mean Corpuscular Hemoglobin 31.1 pg (27.0-31.0); Mean Corpuscular Volume 93.8 fL (78.0-98.0); Mean Platelet Volume 8.5 fL (7.4-10.4); Platelet Count 224 thou/uL (130-400); RBC Distribution Width 12.6 % (11.5-14.5); Red Blood Cell (RBC) Count 4.52 mill/uL (4.70-6.10); White Blood Cell (WBC) Count 9.8 thou/uL (4.8-10.8)
[2021-12-26] MEDS ORDERED: Fentanyl 100 MCG/2 ML VIAL ONE (17:53)
[2021-12-26 18:01] LABS: Anion Gap 16 mmol/L (10-20); BUN (Urea Nitrogen) 10 mg/dL (8.4-25.7); Calc. Creatinine Clearance 98 mL/min (70-130); Calcium 8.4 mg/dL (7.8-10.44); Carbon Dioxide 21 mmol/L (23-31); Chloride 108 mmol/L (98-107); Estimated GFR 97; Glucose 95 mg/dL (83-110); Potassium 4.1 mmol/L (3.5-5.1); Sodium 141 mmol/L (136-145)
[2021-12-26] MEDS: Famotidine/PF 20 mg/2ml Vial SLOW IVP SCH (20:24)
[2021-12-26] MEDS: Sodium Chloride 0.9% 1,000 ML IV SCH (20:26)
[2021-12-26] MEDS ORDERED: Dutasteride 0.5 MG CAP PO SCH (21:00)
[2021-12-26] MEDS ORDERED: Atorvastatin Calcium 40 MG TAB PO SCH (21:00)
[2021-12-26] MEDS ORDERED: Tamsulosin HCl 0.4 MG CAP PO SCH (21:00)
[2021-12-26] MEDS: Docusate 100 MG CAP PO SCH (21:33)
[2021-12-27] MEDS: Sodium Chloride 0.9% 1,000 ML IV SCH (03:00)
[2021-12-27 03:26] VITALS: BMI 23.9
[2021-12-27 06:11] LABS: #Lymphocytes 1.1 thou/uL (1.20-3.40); #Monocytes 0.2 thou/uL (0.11-0.59); #Neutrophils 12.8 thou/uL (1.40-6.50); %Basophils 0.1 % (0.0-1.0); %Lymphocytes 7.5 % (21.0-51.0); %Monocytes 1.5 % (0.0-10.0); %Neutrophils 90.9 % (42.0-75.0); Hemoglobin 14.9 g/dL (14.0-18.0); Mean Corpuscular HGB CONC 32.9 g/dL (32.0-36.0); Mean Corpuscular Hemoglobin 30.7 pg (27.0-31.0); Mean Corpuscular Volume 93.1 fL (78.0-98.0); Mean Platelet Volume 9.1 fL (7.4-10.4); Platelet Count 239 thou/uL (130-400); RBC Distribution Width 12.4 % (11.5-14.5); Red Blood Cell (RBC) Count 4.86 mill/uL (4.70-6.10); White Blood Cell (WBC) Count 14.1 thou/uL (4.8-10.8)
[2021-12-27 06:30] LABS: Anion Gap 15 mmol/L (10-20); BUN (Urea Nitrogen) 11 mg/dL (8.4-25.7); Calc. Creatinine Clearance 96 mL/min (70-130); Calcium 8.5 mg/dL (7.8-10.44); Carbon Dioxide 21 mmol/L (23-31); Chloride 105 mmol/L (98-107); Estimated GFR 96; Glucose 122 mg/dL (83-110); Potassium 4.2 mmol/L (3.5-5.1); Sodium 137 mmol/L (136-145)
[2021-12-27] MEDS: Famotidine/PF 20 mg/2ml Vial SLOW IVP SCH (08:39)
[2021-12-27] MEDS: Docusate 100 MG CAP PO SCH (08:39)
[2021-12-27] MEDS ORDERED: Tamsulosin HCl 0.4 MG CAP PO SCH (09:00)
[2021-12-27] MEDS ORDERED: cefTRIAXone\\ROCEPHIN 1 GM in Sodium Chloride 0.9% 100 ML IVPB SCH (09:00)
[2021-12-27 11:40] VITALS: BP 151/80; TEMP 97.4
== END 2021-12-27 14:40 | disposition home or self-care (01) ==
LOC: SDC 11:22 → SURG A 18:29
PROVIDERS: ADMIT Urology; ATTEND Urology
PROC: 0VT08ZZ Resection of Prostate, Via Natural or Artificial Opening Endoscopic (ICD-10-PCS; principal; 2021-12-26)
DX: N40.1 Benign prostatic hyperplasia with lower urinary tract symptoms (principal); R33.8 Other retention of urine; N13.8 Other obstructive and reflux uropathy; R39.14 Feeling of incomplete bladder emptying; E78.00 Pure hypercholesterolemia, unspecified; N32.89 Other specified disorders of bladder; Z79.899 Other long term (current) drug therapy; Z95.1 Presence of aortocoronary bypass graft; Z20.822 Contact with and (suspected) exposure to COVID-19
CPT/HCPCS: 36415; 80048; 81001; 85025; 85027; 85610; 85730; 86850; 86900; 86901; 87086; 87811; 88305; J0696; J1100; J1956; J2370; J2405; J2704; J3010; J3490; J7050; S0028